=== PATIENT | male | born 1965 | race African-American/Black ===

== ENCOUNTER 2020-07-07 12:28 | Emergency (ER) | payer MEDICAID ==
[~2020-07-07] VITALS: Ht 167.6 cm; Wt 98.0 kg
[2020-07-07 12:44] VITALS: BP 163/95
[2020-07-07] MEDS ORDERED: AMLO2.5T2 MT (13:23)
[2020-07-07] MEDS ORDERED: AMLODIPINE 2.5MG TABLET PO ONE (13:30)
[2020-07-07] MEDS ORDERED: AMLODIPINE 2.5MG TABLET PO SCH (13:45)
== END 2020-07-07 14:11 | disposition home or self-care (01) ==
LOC: EDBD 12:28 → ER 13:07
DX: I16.0 Hypertensive urgency (principal)
CPT/HCPCS: 93005; 99283